=== PATIENT | female | born 1995 | race Hispanic/Latino ===

== ENCOUNTER 2019-08-08 17:38 | Emergency (ER) | payer SELFPAY ==
[~2019-08-08 17:38] MED LIST: Iopamidol-370 76% 500 ML 1 ML ONE
[2019-08-08 18:11] LABS: #Eosinphils 0.4 thou/uL (0.0-0.7); #Lymphocytes 2.4 thou/uL (1.20-3.40); #Monocytes 0.5 thou/uL (0.11-0.59); #Neutrophils 5.6 thou/uL (1.40-6.50); %Basophils 0.3 % (0.0-1.0); %Eosinophils 4.5 % (0.0-10.0); %Lymphocytes 26.7 % (21.0-51.0); %Monocytes 5.8 % (0.0-10.0); %Neutrophils 62.7 % (42.0-75.0); Hemoglobin 12.6 g/dL (12.0-16.0); Mean Corpuscular HGB CONC 33.4 g/dL (32.0-36.0); Mean Corpuscular Hemoglobin 26.3 pg (27.0-31.0); Mean Corpuscular Volume 78.8 fL (78.0-98.0); Mean Platelet Volume 7.1 fL (7.4-10.4); Platelet Count 323 thou/uL (130-400); RBC Distribution Width 13.5 % (11.5-14.5); Red Blood Cell (RBC) Count 4.78 mill/uL (4.20-5.40); White Blood Cell (WBC) Count 8.9 thou/uL (4.8-10.8)
[2019-08-08 18:38] LABS: BHCG - Serum Negative (NEGATIVE); Pregs Control Background? CLEAR/WHITE (CLR/WHITE); Pregs Control Bar Appear? YES (CONTROL BAR)
[2019-08-08 18:42] LABS: ALT (SGPT) 88 U/L (8-55); AST (SGOT) 70 U/L (5-34); Albumin 4.6 g/dL (3.5-5.0); Alkaline Phosphatase 81 U/L (40-110); Anion Gap 13 mmol/L (10-20); BUN (Urea Nitrogen) 11 mg/dL (7.0-18.7); Bilirubin, Total 0.5 mg/dL (0.2-1.2); Calc. Creatinine Clearance 0 mL/min (70-130); Calcium 9.3 mg/dL (7.8-10.44); Carbon Dioxide 22 mmol/L (22-29); Chloride 104 mmol/L (98-107); Estimated GFR-MDRD Greater than 90; Globulin 4.1 g/dL (2.4-3.5); Glucose 138 mg/dL (70-105); Potassium 3.4 mmol/L (3.5-5.1); Protein, Total 8.7 g/dL (6.0-8.3); Sodium 136 mmol/L (136-145)
[2019-08-08] MEDS ORDERED: Ondansetron ODT 4 MG TAB ONE (19:40)
--- NOTE | 2019-08-08 22:13 | CT ---
CT NECK WITH IV CONTRAST: 08/08/19 COMPARISON: None. FINDINGS: There is increased number of lymph nodes seen throughout the neck bilaterally. Largest submental leve l I lymph node measures 1.8 cm in short axis dimension with largest level II lymph node on the right measuring 1.3 cm and level II lymph node on the left measuring approximately 1.4 cm in short axis dim ension. A mildly prominent intraparotid lymph nodes are also noted. There is also mild prominence of the janae oids. A few punctate calcifications are seen in the palatine tonsils which may be related to prior infectio us or inflammatory process. The bilateral carotid spaces as well as parapharyngeal spaces and prevascular space and retropharynge al spaces have an otherwise normal appearance. The pharynx and hypopharynx have an otherwise normal a ppearance as well. Bilateral submandibular glands are normal in appearance. The thyroid gland has a normal appearance. The visualized upper lung zones are clear aside from mild atelectasis. There is partial opacification of the left maxillary antrum with minimal mucosa thickening in the rig ht maxillary antrum. IMPRESSION: 1. Lymphadenopathy seen throughout the neck bilaterally as represented by both an increase in nu mber as well as enlargement of lymph nodes at all levels. Findings may be related to reactive lymphad enopathy secondary to infectious process. However, other lymphoproliferative disorders cannot be ent irely excluded. Largest lymph node is seen in a submental location measuring 1.8 cm. POS: [facility]
== END 2019-08-08 20:32 | disposition home or self-care (01) ==
LOC: ERS 17:38
DX: R59.0 Localized enlarged lymph nodes (principal); J45.909 Unspecified asthma, uncomplicated; Z79.899 Other long term (current) drug therapy; Z79.51 Long term (current) use of inhaled steroids
CPT/HCPCS: 70491; 80053; 84703; 85025; Q0162; Q9967

== ENCOUNTER 2019-08-09 10:00 | Emergency (ER) | payer SELFPAY ==
[2019-08-09] MEDS ORDERED: Lidocaine 1% PF 5 ML VIAL ONE (10:25)
[2019-08-09] MEDS ORDERED: cefTRIAXone\\ROCEPHIN 2 GM VIAL ONE (10:25)
[2019-08-09] MEDS ORDERED: Dexamethasone 4 mg/ml Vial ONE (10:25)
[2019-08-09 10:35] LABS: #Eosinphils 0.4 thou/uL (0.0-0.7); #Monocytes 0.7 thou/uL (0.11-0.59); #Neutrophils 4.7 thou/uL (1.40-6.50); %Basophils 0.4 % (0.0-1.0); %Eosinophils 5.4 % (0.0-10.0); %Lymphocytes 25.3 % (21.0-51.0); %Monocytes 8.5 % (0.0-10.0); %Neutrophils 60.4 % (42.0-75.0); Hemoglobin 12.2 g/dL (12.0-16.0); Mean Corpuscular HGB CONC 33.2 g/dL (32.0-36.0); Mean Corpuscular Hemoglobin 26.3 pg (27.0-31.0); Mean Corpuscular Volume 79.2 fL (78.0-98.0); Platelet Count 307 thou/uL (130-400); RBC Distribution Width 13.7 % (11.5-14.5); Red Blood Cell (RBC) Count 4.65 mill/uL (4.20-5.40); White Blood Cell (WBC) Count 7.7 thou/uL (4.8-10.8)
[2019-08-09 11:02] LABS: Anion Gap 12 mmol/L (10-20); BUN (Urea Nitrogen) 10 mg/dL (7.0-18.7); Calc. Creatinine Clearance 0 mL/min (70-130); Calcium 9.1 mg/dL (7.8-10.44); Carbon Dioxide 25 mmol/L (22-29); Chloride 106 mmol/L (98-107); Estimated GFR-MDRD Greater than 90; Glucose 125 mg/dL (70-105); Potassium 3.7 mmol/L (3.5-5.1); Sodium 139 mmol/L (136-145)
== END 2019-08-09 10:40 | disposition home or self-care (01) ==
LOC: ERS 10:00
DX: R59.0 Localized enlarged lymph nodes (principal); J45.909 Unspecified asthma, uncomplicated; Z79.51 Long term (current) use of inhaled steroids
CPT/HCPCS: 36415; 80048; 85025; 96372; 99283; J0696; J1100; J2001